=== PATIENT | female | born 1970 | race Caucasian/White ===

== ENCOUNTER → 2016-09-07 | Outpatient (CLI) | payer OTHER ==
[2015-05-31 08:52] VITALS: BP 111/61
[~2016-09-07] MED LIST: CETI10TA22 PO; IBUP1TAB PO; LANS30CA PO; LEVO100T5 PO; NORE-87 PO
--- NOTE | 2016-09-08 13:15 | KCIC ---
Bilateral digital screening mammograms with CAD: HISTORY Routine screening COMPARISON Comparison is made to previous left breast dated 09/04/2011. No right breast mammograms are available for comparison. FINDINGS Breast density category C. The skin and nipples show no abnormalities. No abnormal lymph nodes are seen in the axilla. The breast parenchyma shows heterogeneous density. There are no dominant masses, suspicious calcifications or architectural distortions. IMPRESSION No evidence of malignancy. Recommend routine annual mammographic screening. This study was interpreted with the benefit of Computerized Aided Detection (CAD). Mammography is not 100% sensitive in detecting breast cancer. Therefore, a self breast exam and a clinical breast exam are very important. A negative mammogram does not negate a clinically suspicious finding and should not result in a delay in biopsying a clinically suspicious abnormality. BI-RADS category 2: Benign. This patient's information has been entered into a reminder system for the patient to be notified with the results of this examination and a target date for her next mammograms. Electronically signed by: Vannesa Coburn MD (Sep 08, 2016 13:13:34)
== END | disposition home or self-care (01) ==
LOC: KCIC MAMMO 17:05
PROVIDERS: ATTEND Family Medicine
DX: Z12.31 Encounter for screening mammogram for malignant neoplasm of breast (principal)
CPT/HCPCS: G0202; 77067

== ENCOUNTER → 2016-10-13 | Outpatient (CLI) | payer OTHER ==
[2015-05-31 08:52] VITALS: BP 111/61
--- NOTE | 2016-10-13 16:15 | KCIC ---
PROCEDURE Thyroid ultrasound. HISTORY Enlarged thyroid on exam. Hypothyroidism. COMPARISON None. TECHNIQUE Real-time ultrasound imaging of the thyroid gland is performed. FINDINGS [employer] notes that the patient had thyroid radiated 20 years ago. In the thyroid bed, no thyroid tissue is identified. There is no mass or adenopathy or fluid collection in this region. IMPRESSION No thyroid tissue is identified. Electronically signed by: David Leal MD (Oct 13, 2016 16:14:28)
== END | disposition home or self-care (01) ==
LOC: KCIC US 15:15
PROVIDERS: ATTEND Nurse Practitioner Family
DX: E03.9 Hypothyroidism, unspecified (principal)
CPT/HCPCS: 76536

== ENCOUNTER → 2020-01-18 | Outpatient (CLI) | payer OTHER ==
[2015-05-31 08:52] VITALS: BP 111/61
[~2020-01-18] MED LIST changes: -CETI10TA22 PO; +CETI10TA74 PO
--- NOTE | 2020-01-18 18:42 | KCIC ---
Bilateral digital screening mammograms: Reason for examination: Routine screening. Comparison is made to previous study dated 09/07/2016. Interpretation was made with the benefit of CAD. The skin and nipples show no abnormalities. No abnormal axillary lymph nodes are seen. The breast parenchyma is heterogeneously dense. (Breast density: Category C.) There continues to be some parenchymal asymmetry in the upper outer quadrant of the left breast which is unchanged. There are no new dominant masses, suspicious calcifications or architectural distortion. Impression: No evidence of malignancy. Recommend routine screening. Your patient's mammogram demonstrates that she has dense breast tissue (breast density category C or D), which could hide abnormalities, and if she has other risk factors for breast cancer that have been identified, she might benefit from supplemental screening tests that may be suggested by you as her ordering physician. Dense breast tissue, in and of itself, is a relatively common condition. Therefore, this information is not provided to cause undue concern, but rather to raise your awareness and to promote discussion with your patient regarding the presence of other risk factors, in addition to dense breast tissue. Your patient's mammography results will be sent to her. BI-RAD Category 2: Benign. "Our facility is accredited by the [employer] Mammography Program." This patient's information has been entered into a reminder system for the patient to be notified with the results of her examination and a target date for the next mammogram. Electronically signed by: Radha Coburn MD (01/18/2020 6:40 PM) [email or web address]
== END | disposition home or self-care (01) ==
LOC: KCIC MAMMO 14:36
PROVIDERS: ATTEND Family Medicine
DX: Z12.31 Encounter for screening mammogram for malignant neoplasm of breast (principal)
CPT/HCPCS: 77067

== ENCOUNTER → 2020-08-29 | Outpatient (CLI) | payer OTHER ==
[2015-05-31 08:52] VITALS: BP 111/61
--- NOTE | 2020-08-30 09:24 | KCIC ---
EXAM: Pelvic Ultrasound Complete INDICATION: Reason: Intermittent pelvic pain; Partial Hysterectomy 2014. Instructions: / Histo ry: ? TECHNIQUE: Real-time ultrasound of the pelvis with permanent freeze-frame documentation. COMPARISON:?None. ? FINDINGS: ? UTERUS:?Uterus is absent. Vaginal cuff is unremarkable. ? RIGHT OVARY/ADNEXA: Right ovary is not seen and may be absent. LEFT OVARY/ADNEXA:?Left ovary 2.3 x 1.4 x 1.0 cm. ?Unremarkable. Normal ovarian blood flow. No left adnexal abnormality identified. Sonographic imaging of the lateral left pelvis was also perfo rmed in the patient's reported area of pain and reveals no abnormalities. ? OTHER:?No evidence of significant pelvic free fluid. ? IMPRESSION: ? Normal pelvic ultrasound status post hysterectomy and possible right oophorectomy. Electronically signed by: Radha Cox MD (08/30/2020 9:22 AM) [id number]
== END ==
LOC: KCIC US 15:02
PROVIDERS: ATTEND Obstetrics & Gynecology
DX: R10.2 Pelvic and perineal pain (principal); Z90.710 Acquired absence of both cervix and uterus
CPT/HCPCS: 76856

== ENCOUNTER → 2020-09-05 | Outpatient (CLI) | payer OTHER ==
[2015-05-31 08:52] VITALS: BP 111/61
--- NOTE | 2020-09-05 15:36 | KCIC ---
EXAM: DUAL ENERGY X-RAY ABSORPTIOMETRY (DEXA). HISTORY: Postmenopausal screening. FINDINGS: The lowest measured T-score is -1.3 in the left hip, based on a bone mineral density of 0.7 82 g/cm^2. Refer to the worksheets for full detail. No comparison examinations are available. IMPRESSION: 1. Low bone mass. Bone mineral density yields a T-score between -1.0 and -2.5. Fracture risk is incre ased. 2. FRAX report: Not calculated. METHODOLOGY: Dual energy x-ray absorptiometry was performed to measure bone mineral density. The foll owing analysis is based on the 2019 Official Positions of the International Society for Clinical Dens itometry: Measurements of the hips and the average of L1-L4 are preferred. When the spine and/or hip cannot be feasibly measured or interpreted, or in the setting of hyperparathyroidism, distal radial bone minera l density may be measured. The lumbar spine T-score is based on the average bone mineral density of L1-L4. In the setting of art ifact or anatomic abnormality, some lumbar levels may be excluded, and the remaining levels used for calculation. A single lumbar level is not used for diagnosis, and if only a single level is available for assessment, another anatomic site will be used to assign a diagnosis. The hip T-score is based on the bone mineral density measurement of the femoral neck or total proxima l femur of either side, whichever is lowest. Bilateral mean values are not used for diagnosis. The forearm T-score is derived from 33% of the distal radius of the nondominant forearm. Electronically signed by: Nubia Delgado MD (09/05/2020 3:34 PM) [id number]
== END ==
LOC: KCIC DEXA 15:03
PROVIDERS: ATTEND Family Medicine
DX: Z78.0 Asymptomatic menopausal state (principal)
CPT/HCPCS: 77080

== ENCOUNTER → 2021-05-26 | Outpatient (CLI) | payer OTHER ==
[2015-05-31 08:52] VITALS: BP 111/61
--- NOTE | 2021-05-26 18:44 | KCIC ---
Bilateral digital screening mammograms: Reason for examination: Routine screening. Comparison is made to previous studies dated 01/18/2020 and 09/07/2016. Interpretation was made with the benefit of CAD. The skin and nipples show no abnormalities. No abnormal axillary lymph nodes are seen. The breast par enchyma is heterogeneously dense. (Breast density: Category C.) There appears to be a small nodule pr esent at the 2:00 B position of the left breast approximately 6 cm from the nipple and measuring appr oximately 7.6 mm in size. Further evaluation with ultrasound is recommended. There are no other domin ant masses, suspicious calcifications or architectural distortion. Impression: 7.6 mm nodule present in the 2:00 B position of the left breast 6 cm from the nipple. Recommend furth er evaluation with ultrasound. Your patient's mammogram demonstrates that she has dense breast tissue (breast density category C or D), which could hide abnormalities, and if she has other risk factors for breast cancer that have bee n identified, she might benefit from supplemental screening tests that may be suggested by you as her ordering physician. Dense breast tissue, in and of itself, is a relatively common condition. Therefo re, this information is not provided to cause undue concern, but rather to raise your awareness and t o promote discussion with your patient regarding the presence of other risk factors, in addition to d ense breast tissue. Your patient's mammography results will be sent to her. BI-RAD Category 0: Incomplete. Needs additional imaging evaluation. "Our facility is accredited by the [employer] Mammography Program." This patient's information has been entered into a reminder system for the patient to be notified wit h the results of her examination and a target date for the next mammogram. Electronically signed by: Radha Coburn MD (05/26/2021 6:42 PM) [email or web address]
== END ==
LOC: KCIC MAMMO 15:57
PROVIDERS: ATTEND Family Medicine
DX: Z12.31 Encounter for screening mammogram for malignant neoplasm of breast (principal)
CPT/HCPCS: 77067

== ENCOUNTER → 2021-06-17 | Outpatient (CLI) | payer OTHER ==
[2015-05-31 08:52] VITALS: BP 111/61
--- NOTE | 2021-06-17 14:32 | KCIC ---
US BREAST LT Clinical Indication: Reason: CALLBACK / Spl. Instructions: / History: Comparison: Bilateral mammogram 05/26/2021 and 2019. TECHNIQUE: Real-time ultrasound imaging of the left breast is performed. Findings: At the 2:00 position 6 cm from the nipple there is an extremely dense ridge of fibroglandular tissue measuring on the order of 4 cm. A solid or cystic nodule is not identified. There is moderate retroar eolar ductal ectasia. No intraductal mass is identified. There are no abnormal axillary lymph nodes. IMPRESSION: 1. There is no sonographic correlate for the nodularity noted on mammogram. Recommend six-month foll ow-up left diagnostic mammogram. 2. BI-RADS Category 3, probably benign. Electronically signed by: David Leal MD (06/17/2021 2:30 PM) [email or web address]
== END ==
LOC: KCIC US 12:46
PROVIDERS: ATTEND Family Medicine
DX: R92.2 Inconclusive mammogram (principal)
CPT/HCPCS: 76641